=== PATIENT | female | born 1965 | race Caucasian/White ===

== ENCOUNTER 2016-12-26 16:22 | Emergency (ER) | payer BC | END 2016-12-26 17:39 | disposition home or self-care (01) | LOC: ER 16:22 | DX: S06.0X0A Concussion without loss of consciousness, initial encounter (principal); S16.1XXA Strain of muscle, fascia and tendon at neck level, initial encounter; M54.5 Low back pain; R11.0 Nausea; Z79.82 Long term (current) use of aspirin; Z88.1 Allergy status to other antibiotic agents; W01.198A Fall on same level from slipping, tripping and stumbling with subsequent striking against other object, initial encounter | CPT/HCPCS: 96374; J1885 ==

== ENCOUNTER 2017-01-22 01:01 | Emergency (ER) | payer BC | END 2017-01-22 03:32 | disposition home or self-care (01) | LOC: ER 01:01 | DX: R07.9 Chest pain, unspecified (principal); M54.2 Cervicalgia; M79.602 Pain in left arm; Z88.1 Allergy status to other antibiotic agents; Z79.82 Long term (current) use of aspirin | CPT/HCPCS: 36415 ==